=== PATIENT | female | born 1995 | race Caucasian/White ===

== ENCOUNTER → 2020-08-07 10:38 | Outpatient (CLI) | payer BC, SELFPAY ==
--- NOTE | ~2020-08-07 | XR_ITS ---
EXAMINATION: XR lumbar spine 2-3V EXAM DATE: 08/07/2020 11:03 INDICATION: Posterior back pain for one week. TECHNIQUE: Lumber spine frontal, lateral, lateral L5-S1 projections for interpretation. There is no prior study for comparison. FINDINGS: The vertebral bodies are aligned in the AP dimension. Vertebral body and disc heights are w ell-maintained. Facet joints are unremarkable. No spondylolysis. Sacrum, sacroiliac joints, sacral ar raina lines are intact. Paraspinal soft tissue is unremarkable. IMPRESSION: Unremarkable XR lumbar spine 2-3V exam. Reviewed, dictated and finalized at location A.
== END ==
PROVIDERS: PCP Family Medicine; Visit Provider Physician Assistant
DX: M54.32 Sciatica, left side (principal); M54.9 Dorsalgia, unspecified
CPT/HCPCS: 72100

== ENCOUNTER 2020-09-28 14:59 | Emergency (ER) | payer BC, SELFPAY ==
--- NOTE | ~2020-09-28 | CT_ITS ---
EXAMINATION: CT brain wo con DATE: 09/28/2020 17:04 INDICATION: Lower extremity weakness. TECHNIQUE: Computed tomography (CT) of the head was performed without intravenous contrast. The mA wa s adjusted according to patient size. Iterative reconstruction technique was employed. The dose-lengt h product was 605.33 mGy-cm. COMPARISON: None FINDINGS: There is no intracranial hemorrhage, acute infarction, or abnormal intracranial mass lesion . The ventricles are normal in size. The paranasal sinuses are clear. The mastoid air cells are es l. IMPRESSION: 1. Normal brain. Reviewed, dictated and finalized at location A. OLOGY COLLECTOR IMPRESSION: 1. Normal brain.
--- NOTE | ~2020-09-28 | CT_ITS ---
EXAMINATION: CT lumbar spine wo con DATE: 09/28/2020 17:05 INDICATION: Right leg weakness. Chronic low back pain. TECHNIQUE: Computed tomography (CT) of the lumbar spine was performed without intravenous contrast. A utomated exposure control and iterative reconstruction technique were employed. The dose-length produ ct was 1001.18 mGy-cm. COMPARISON: Lumbar spine radiographs 08/07/2020 FINDINGS: There are surgical clips from cholecystectomy. There is 6 degrees levocurvature of lumbar s pine. There are Schmorl's nodes from T11-T12 through L1-L2. Intervertebral disc heights are normal. T he following disc levels are specifically discussed: L1-L2: The disc is bulging. There is mild bilateral facet joint osteoarthritis. There is no neural fo raminal stenosis. There is mild central canal stenosis. L2-L3: The disc does not extend beyond the endplate margin. There is mild bilateral facet joint osteo arthritis. There is no neural foraminal stenosis. There is no central canal stenosis. L3-L4: The disc is bulging. There is moderate right and mild left facet joint osteoarthritis. There i s mild bilateral neural foraminal stenosis. There is mild central canal stenosis. L4-L5: The disc is bulging. There is mild bilateral facet joint osteoarthritis. There is mild bilater al neural foraminal stenosis. There is mild central canal stenosis. L5-S1: The disc is bulging. There is moderate bilateral facet joint osteoarthritis. There is mild rig ht and moderate left neural foraminal stenosis. There is mild central canal stenosis. IMPRESSION: 1. Mild lumbar spondylosis. Reviewed, dictated and finalized at location A. ENGINEER IMPRESSION: 1. Mild lumbar spondylosis.
[2020-09-28 15:04] VITALS: BP 144/89; PULSE 105; RESP 18; TEMP 36.8; O2SAT 98
--- NOTE | 2020-09-28 15:23 | PC.NURSE ---
during assessment, patient unable to lift either leg more than a couple of inches but when told she can sit up on the side of the bed she moved into sitting position with no problem.
--- NOTE | 2020-09-28 16:08 | ED.LOWEXIN ---
HPI - Extremity Injury (Lower) General Chief Complaint: Extremity Injury, Lower Stated Complaint: muscle weakness Time Seen by Provider: 09/28/20 15:28 Source: patient Mode of arrival: wheelchair Limitations: no limitations History of Present Illness HPI Narrative: This is a 25 year old female that presents to the ER for lower extremity weakness x 2 months. Reports increasing weakness in her lower extremities. Reports it is making it difficult for her to ambulate. Reports she is currently seeing a neurologist at [facility] for weakness in her upper extremities. Had a nerve conduction study done for possible carpal tunnel and noted to start having lower extremity weakness after that. Denies fever, low back pain, saddle anesthesia or bowel/bladder incontinence. Related Data Home Medications Medication Instructions Recorded Confirmed diazepam 2 mg tablet 2 mg PO TID PRN 11/13/19 08/05/20 lamotrigine 200 mg tablet 400 mg PO DAILY tablet 11/13/19 08/05/20 lansoprazole 15 mg capsule,delayed 15 mg PO DAILY 11/13/19 08/05/20 release methylphenidate HCl 36 mg 72 mg PO QAM tablet 11/13/19 08/05/20 tablet,extended release 24 hr trazodone 50 mg tablet 50 mg PO DAILY tablet 11/13/19 08/05/20 venlafaxine 75 mg capsule,extended 75 mg PO DAILY 11/13/19 08/05/20 release 24 hr ferrous sulfate 325 mg (65 mg 150 mg PO .every other day tablet 08/05/20 08/05/20 iron) tablet medroxyprogesterone mg IM 09/28/20 Allergies Allergy/AdvReac Type Severity Reaction Status Date / Time cinnamon Allergy Unknown Unknown Verified 08/05/20 16:12 metronidazole Allergy Unknown unknown Verified 08/05/20 16:12 Review of Systems Review of Systems: Narrative: CONSTITUTIONAL: Denies fever SKIN: Denies rash MUSCULOSKELETAL: Reports back pain, joint pain, and myalgia. NEUROLOGIC: Reports weakness. Denies numbness All systems reviewed & are unremarkable except as noted in HPI and below PMFSH Past Medical History Medical History (Updated 09/28/20 @ 18:30 by Arlin Burnham PA-C) Anxiety disorder, unspecified Bipolar disorder, unspecified Surgical History Surgical History Hx of cholecystectomy (~07/2019) Family History Family History Mother Family history of thyroid disease Grandparent Family history of lung cancer Other Family history of malignant neoplasm of breast Social History Social History Smoking status: Current every day smoker Alcohol intake: current Gender identity (if verbalized by the patient): Female Exam Narrative: Exam Narrative: GENERAL: Well-appearing, well-nourished, and in no acute distress. HEAD: Normocephalic, atraumatic. EYES: PERRLA and EOMI. ENT: Nares clear, no rhinorrhea or epistaxis. Mucous membranes moist. Oropharynx without tonsillar hypertrophy exudate or other lesions. Bilateral TMs pearly marcano non-bulging NECK: Supple. No adenopathy or masses. CHEST: Clear to auscultation. No respiratory distress. No wheezes rales or rhonchi HEART: Regular rate and rhythm. No murmur heard. Normal peripheral pulses. BACK: No midline spinal tenderness EXTREMITIES: Normal range of motion. No edema or erythema. Strength equal in bilateral lower extremities (3/5). Normal DP pulses. Normal sensation SKIN: Warm, dry, no rash. NEURO: No focal deficits. Alert and oriented x3. Cranial nerves II through XII grossly intact PSYCH: Normal mood and affect Course Consultations Consultation #1: Spoke with Dr. Guido about patient and workup. Patient may follow-up in clinic. If there are any concerns she could be transferred for further evaluation in the ED tonight Date: 09/28/20 Time: 18:28 Vital Signs Vital signs: Vital Signs Temperature 98.3 F 09/28/20 15:04 Pulse Rate 105 H 09/28/20 15:04 Respiratory Rate 18 09/28/20 15:04 Blood Pressur
[2020-09-28 16:25] LABS: Basophils Percent Auto 0.4 % (0.2-1.2); Eosinophils Absolute Auto 0.1 K/mm3 (0-0.3); Eosinophils Percent Auto 1.4 % (0-4.4); Hematocrit 43.1 % (37.0-47.0); Hemoglobin 14.2 g/dL (12.0-15.0); Immature Granulocyte Absolute 0.02 K/mm3 (0.00-0.031); Immature Granulocyte Percent A 0.2 % (0-0.5); Lymphocytes Absolute Auto 2.66 K/mm3 (0.9-3.2); Lymphocytes Percent Auto 28.6 % (18.3-44.2); Mean Corpuscular HGB Conc 32.9 g/dl (32-36); Mean Corpuscular Hemoglobin 29.8 pg (26-34); Mean Corpuscular Volume 90.5 fl (80-100); Mean Platelet Volume 9.3 fl (7.4-10.4); Monocytes Absolute Auto 0.6 K/mm3 (0.1-0.6); Monocytes Percent Auto 6.8 % (2.6-8.5); Neutrophils Absolute Auto 5.8 K/mm3 (1.3-6.7); Neutrophils Percent Auto 62.6 % (45.5-73.1); Platelet Count Result 375 k/mm3 (150-375); Red Blood Count 4.76 M/mm3 (4.2-5.4); Red Cell Distribution Width 13.7 % (11.5-14.5); White Blood Count 9.3 K/mm3 (4.5-10.0)
[2020-09-28 16:45] LABS: Anion Gap 8 mmol/L (8-16); Blood Urea Nitrogen 14 mg/dL (7-17); CRP 0.7 mg/dL (<1.0); Calcium 9.2 mg/dL (8.4-10.2); Carbon Dioxide 25 mmol/L (22-30); Chloride 107 mmol/L (98-107); Estimated CRCL calculation 116 ml/min; Estimated Glomerular Filt Rate > 60; Glucose 114 mg/dL (65-105); Sodium 140 mmol/L (137-145)
[2020-09-28 16:51] LABS: Erythrocyte Sedimentation Rate 10 mm/hr (0-20)
[2020-09-28 17:40] LABS: Potassium 3.8 mmol/L (3.4-5.0)
[2020-09-28 18:06] VITALS: BP 114/67; PULSE 66; RESP 18; O2SAT 97
--- NOTE | 2020-09-28 18:06 | PC.NURSE ---
Pt ambulated to the bathroom with no assistance. Pt using rails on the bradshaw to balance
== END 2020-09-28 19:00 | disposition home or self-care (01) ==
PROVIDERS: Physician Assistant; Emergency Provider Emergency Medicine; PCP Family Medicine
DX: R53.1 Weakness (principal); F41.9 Anxiety disorder, unspecified; F31.9 Bipolar disorder, unspecified; F17.200 Nicotine dependence, unspecified, uncomplicated; M47.816 Spondylosis without myelopathy or radiculopathy, lumbar region
CPT/HCPCS: 36415; 70450; 72131; 80048; 81025; 85025; 85652; 86140; 99284

== ENCOUNTER → 2022-07-25 10:38 | Outpatient (CLI) | payer BC, SELFPAY ==
--- NOTE | ~2022-07-25 | US_ITS ---
EXAMINATION: US renal BI DATE: 07/25/2022 11:03 INDICATION: Other specified disorders of kidney and ureter TECHNIQUE: Multiple ultrasound grayscale images of the kidneys were obtained. COMPARISON: None. FINDINGS: The right kidney measures 11.3 x 4.6 x 5.5 cm. The left kidney measures 10.3 x 4.5 x 5.3 cm. The kidn eys demonstrate normal echogenicity. There is mild bilateral hydronephrosis. No stones identified. T he bladder is normal. IMPRESSION: 1. Mild bilateral hydronephrosis which is of indeterminate etiology although the bilaterality would suggest obstruction or neurogenic bladder as potential etiologies. Reviewed, dictated and finalized at location A. IMPRESSION: 1. Mild bilateral hydronephrosis which is of indeterminate etiology although t he bilaterality would suggest obstruction or neurogenic bladder as potential et iologies.
== END ==
PROVIDERS: PCP Family Medicine; Visit Provider Family Medicine
DX: N28.89 Other specified disorders of kidney and ureter (principal); N13.30 Unspecified hydronephrosis
CPT/HCPCS: 76775

== ENCOUNTER 2022-08-20 18:56 | Emergency (ER) | payer BC, SELFPAY ==
[2022-08-20 18:58] VITALS: BP 151/81; PULSE 92; RESP 11; TEMP 36.7; O2SAT 99
[2022-08-20 19:24] LABS: Glucose Point of Care 96 mg/dl (65-105)
--- NOTE | 2022-08-20 19:33 | PC.NURSE ---
Pt alert and awake, able to move and speak with EDP Castro. Pt tearful. Family and pt updated on POC.
--- NOTE | 2022-08-20 19:38 | ED.AMS ---
HPI - Altered Mental Status General Chief Complaint: Altered Mental Status Stated Complaint: can't speak or move Time Seen by Provider: 08/20/22 19:12 History of Present Illness HPI narrative: [facility] to an episode where she felt as if she could not speak or move. Patient. She states that she has had similar episodes in the past that she attributes possibly from her anxiety or stress levels, though she states that over the last 2 weeks she feels she is having more of these episodes she describes these episodes as usually a sensation of feeling as if she is not able to think well. She does have a psychiatrist for her bipolar disorder and has been taking all of her medications. Related Data Home Medications Medication Instructions Recorded Confirmed medroxyprogesterone 150 mg/mL mg IM 09/28/20 08/05/22 intramuscular syringe dextroamphetamine-amphetamine ER 30 mg PO DAILY 12/02/20 08/05/22 30 mg 24hr capsule,extend release (Adderall XR) lansoprazole 15 mg capsule,delayed 30 mg PO DAILY 11/03/21 08/05/22 release (Prevacid) diclofenac sodium 50 mg 50 mg PO DAILY 05/16/22 08/05/22 tablet,delayed release fluoxetine 40 mg capsule 80 mg PO DAILY 05/16/22 08/05/22 lamotrigine 200 mg tablet 200 mg PO DAILY 05/16/22 08/05/22 (Lamictal) trazodone 50 mg tablet 100 mg PO QHS 05/16/22 08/05/22 Allergies Allergy/AdvReac Type Severity Reaction Status Date / Time cinnamon Allergy Unknown throat Verified 08/20/22 19:07 swelling metronidazole Allergy Unknown Confusion Verified 08/20/22 19:07 topiramate [From Topamax] AdvReac Mild Confusion Verified 08/20/22 19:07 aimovig AdvReac bone pain Uncoded 08/20/22 19:07 sumitriptan AdvReac suicidal Uncoded 08/20/22 19:07 ideation Review of Systems Review of Systems: CONST: No fever. HEENT: No sore throat C/V: No chest pain RESP: No cough GI: No abdominal pain : Increased frequency M/S: No joint pain. SKIN: No rash. NEURO: Feels as if she cannot tell her body to move PSYCH: Anxiety PMFSH Past Medical History Medical History Anxiety disorder, unspecified Bipolar disorder, unspecified Depression Erosive esophagitis GERD (gastroesophageal reflux disease) RLS (restless legs syndrome) Stomach ulcer Surgical History Surgical History Hx of cholecystectomy (~07/2019) S/P laparotomy Family History Family History Mother Family history of thyroid disease Graves disease Grandparent Family history of lung cancer Father Hypertension Other Family history of malignant neoplasm of breast Social History Social History Smoking status: Current every day smoker Alcohol intake: current Gender identity (if verbalized by the patient): Female Exam Narrative: EXAMINATION OF ORGAN SYSTEMS/BODY AREAS: Constitutional: Vital signs per nursing GENERAL:[No acute distress, non-toxic appearing.] HEAD: Normal with no signs of head trauma. EYES: EOMI, conjunctiva normal ENT: Hearing grossly intact. Speaking with normal speech. Able to turn her neck. LUNGS: Nonlabored breathing. HEART: [Regular rate and rhythm] ABD: [Soft], [nontender to palpation] EXT: Not currently moving her extremities SKIN: [No rashes or lesions.] NEURO: [Alert and oriented x 3.] PSYCH: Normal affect; upset with the map plotter who transported her Course Vital Signs Vital signs: Vital Signs Temperature 98.0 F 08/20/22 18:58 Pulse Rate 92 08/20/22 18:58 Respiratory Rate 11 L 08/20/22 18:58 Blood Pressure 151/81 H 08/20/22 18:58 Pulse Oximetry 99 08/20/22 18:58 Oxygen Delivery Room Air 08/20/22 18:58 Temperature 98.0 F 08/20/22 18:58 Pulse Rate 96 08/20/22 19:53 Respiratory Rate 13 08/20/22 19:53 Blood Pressure 135/84
[2022-08-20 19:53] VITALS: BP 135/84; PULSE 96; RESP 13; O2SAT 100
[2022-08-20 20:00] LABS: Basophils Absolute Auto 0.1 K/mm3 (0.0-0.1); Basophils Percent Auto 0.7 % (0.2-1.2); Eosinophils Absolute Auto 0.2 K/mm3 (0-0.3); Eosinophils Percent Auto 2.1 % (0-4.4); Hemoglobin 14.5 g/dL (12.0-15.0); Immature Granulocyte Absolute 0.01 K/mm3 (0.00-0.031); Immature Granulocyte Percent A 0.1 % (0-0.5); Lymphocytes Absolute Auto 4.32 K/mm3 (0.9-3.2); Lymphocytes Percent Auto 43.4 % (18.3-44.2); Mean Corpuscular Volume 97.1 fl (80-100); Mean Platelet Volume 8.9 fl (7.4-10.4); Monocytes Absolute Auto 0.7 K/mm3 (0.1-0.6); Monocytes Percent Auto 7.3 % (2.6-8.5); Neutrophils Absolute Auto 4.6 K/mm3 (1.3-6.7); Neutrophils Percent Auto 46.4 % (45.5-73.1); Platelet Count Result 397 k/mm3 (150-375); Red Blood Count 4.53 M/mm3 (4.2-5.4); Red Cell Distribution Width 12.5 % (11.5-14.5)
[2022-08-20 20:11] LABS: Alanine Aminotransferase 42 U/L (6-35); Albumin Level 4.3 g/dL (3.5-5.1); Alkaline Phosphatase 84 U/L (38-126); Anion Gap 11 mmol/L (8-16); Aspartate Amino Transferase 31 U/L (14-36); Bilirubin,Total 0.3 mg/dL (0.2-1.3); Blood Urea Nitrogen 10 mg/dL (7-17); Calcium 9.1 mg/dL (8.4-10.2); Carbon Dioxide 26 mmol/L (22-30); Chloride 101 mmol/L (98-107); Estimated CRCL calculation 79 ml/min; Estimated Glomerular Filt Rate > 60; Glucose 91 mg/dL (65-110); Sodium 138 mmol/L (137-145)
[2022-08-20 20:14] LABS: Acetaminophen < 10 ug/mL (10-30); Ethanol < 10 mg/dL (<10)
[2022-08-20 20:16] LABS: Salicylate < 1.0 mg/dL (2-20)
--- NOTE | 2022-08-20 20:23 | PC.NURSE ---
patient ambulated to bathroom with steady gate
[2022-08-20 20:35] LABS: Appearance Urine Clear (Clear); Bilirubin Urine Negative (Negative); Blood Urine Negative (Negative); Color Urine Yellow (Yellow); Glucose Urine UA Negative (Negative); Ketones Urine Negative (Negative); Leukocyte Esterase Ur Negative LEU/UL (Negative); Nitrate Urine Negative (Negative); Protein Urine Negative (Negative); Specific Grav Ur 1.015 (1.001-1.035); Urobilinogen Urine 0.2 mg/dL (<2.0); pH Urine 6.5 (5.0-9.0)
[2022-08-20 20:38] LABS: Add Urine Microscopic? NO
[2022-08-20 20:45] LABS: Amphetamine Screen Urine Positive (Negative); Barbiturate Screen Urine Negative (Negative); Benzodiazepines Screen Urine Negative (Negative); Cannabinoid Screen Urine Negative (Negative); Cocaine Screen Urine Negative (Negative); Methadone Screen Urine Negative (Negative); Opiate Screen Urine Negative (Negative); Phencyclidine Screen Urine Negative (Negative)
[2022-08-20 21:08] VITALS: BP 126/71; PULSE 83; RESP 17; O2SAT 98
== END 2022-08-20 21:16 | disposition home or self-care (01) ==
PROVIDERS: Emergency Provider Emergency Medicine; PCP Family Medicine
DX: F43.9 Reaction to severe stress, unspecified (principal); F41.9 Anxiety disorder, unspecified; F31.9 Bipolar disorder, unspecified; K22.10 Ulcer of esophagus without bleeding; K21.9 Gastro-esophageal reflux disease without esophagitis; G25.81 Restless legs syndrome; F17.200 Nicotine dependence, unspecified, uncomplicated
CPT/HCPCS: 36415; 80053; 80307; 81003; 81025; 82948; 84443; 85025; 99283

== ENCOUNTER 2022-09-06 12:48 | Outpatient (CLI) | payer BC, SELFPAY ==
--- NOTE | ~2022-09-06 | NM_ITS ---
EXAMINATION: [facility] jimenez renal scan DATE: 09/06/2022 14:24 INDICATION: Bilateral hydronephrosis TECHNIQUE: 7.7 mCi Tc-99m MAG3 was administered IV. 40 mg furosemide was administered IV immediately afterward. A posterior abdominal radionuclide angiogram was obtained. A subsequent time course of st atic images of the kidneys, ureters, and bladder was obtained. COMPARISON: None FINDINGS: The posterior abdominal radionuclide angiogram and sequential static images show normal size, positio n, and morphology of the kidneys. Peak renal parenchymal uptake was 1.9 min in left kidney and 1.7 mi n in right kidney (normal peak 3-5 minutes). The relative early renal uptake was 42.3% on the left a nd 57.7% on the right (<40% is abnormal). No abnormalities of the ureters or bladder are seen. T1/2 for clearance of activity from the left kidney and proximal collecting system was 3.6 minutes. T1/2 for clearance of activity from the right kidney and proximal collecting system was 3.7 minutes. Notes on interpretation: T1/2 <10 minutes is normal, 10-15 minutes is low grade obstruction of questi onable clinical significance, 15-20 minutes is partial obstruction that is likely clinically signific ant, >20 minutes is high grade obstruction. Note that false positives may be seen with supine positio dre, dehydration, severely dilated nonobstructed kidney, atonic collecting system, poor renal functi on, and chronic furosemide use. IMPRESSION: 1. Symmetric kidney function. 2. No delay in contrast clearance from either kidney to suggest fixed obstruction. Reviewed, dictated and finalized at location B. IMPRESSION: 1. Symmetric kidney function. 2. No delay in contrast clearance from either kidney to suggest fixed obstruct ion.
== END 2022-09-06 12:49 | disposition home or self-care (01) ==
PROVIDERS: PCP Family Medicine; Visit Provider Urology
DX: N13.30 Unspecified hydronephrosis (principal)
CPT/HCPCS: 78708; A9562; J1940

== ENCOUNTER 2022-10-03 15:14 | Outpatient (CLI) | payer BC, SELFPAY | END 2022-10-03 15:15 | disposition home or self-care (01) | LOC: ANHGOSHLAB 15:15 | PROVIDERS: PCP Family Medicine; Visit Provider Family Medicine | DX: M35.3 Polymyalgia rheumatica (principal); G25.81 Restless legs syndrome; R53.83 Other fatigue | CPT/HCPCS: 36415; 84443 ==

== ENCOUNTER 2022-10-04 07:15 | Outpatient (CLI) | payer BC, SELFPAY ==
--- NOTE | ~2022-10-04 | XR_ITS ---
EXAMINATION: XR UGIAC w barium swallow DATE: 10/04/2022 08:20 INDICATION: Gastroesophageal reflux disease with esophagitis. TECHNIQUE: The patient drank thick barium, gas-producing crystals, and thin barium. A total of 1331 f luoroscopic images of the esophagus, stomach, and proximal small bowel were obtained. Fluoroscopy exp osure time was 2.4 minutes. COMPARISON: None. FINDINGS: The esophagus is normal without mass or stricture. Esophageal motility is normal. Small to moderate-sized sliding-type hiatal hernia with gastroesophageal junction approximately 5 cm above lev el of the diaphragm. There was a small amount of spontaneous gastroesophageal reflux of a small amoun t of contrast and gas immediately following the double contrast portion of the examination. No subseq uent gastroesophageal reflux was able to be elicited with provocative maneuvers. The stomach and prox imal small bowel are otherwise normal. Cholecystectomy clips in right upper quadrant. IMPRESSION: 1. Small to moderate-sized sliding-type hiatal hernia. 2. Single episode of a small amount of gastroesophageal reflux when the stomach was distended with ga s. Reviewed, dictated and finalized at location A. PACKER OPERATOR IMPRESSION: 1. Small to moderate-sized sliding-type hiatal hernia. 2. Single episode of a small amount of gastroesophageal reflux when the stomach was distended with gas.
== END 2022-10-04 07:16 | disposition home or self-care (01) ==
PROVIDERS: PCP Family Medicine; Visit Provider Surgery
DX: K44.9 Diaphragmatic hernia without obstruction or gangrene (principal); K21.9 Gastro-esophageal reflux disease without esophagitis
CPT/HCPCS: 74246

== ENCOUNTER 2022-12-30 07:43 | Outpatient (CLI) | payer BC, SELFPAY ==
--- NOTE | ~2022-12-30 | CT_ITS ---
EXAMINATION: CT abdomen pelvis w con DATE: 12/30/2022 08:58 INDICATION: Abdominal pain with nausea, vomiting, constipation and weight loss. TECHNIQUE: Computed tomography (CT) of the abdomen and pelvis was performed with 100 mL Omnipaque-350 intravenous contrast. Automated exposure control and iterative reconstruction technique were employe d. The dose-length product was 467.39 mGy-cm. COMPARISON: 08/06/2019 FINDINGS: Lung bases are clear. Visualized inferior heart is normal. No pericardial or pleural effusion. Small sliding-type hiatal hernia. Cholecystectomy clips the gallbladder fossa. Liver, spleen, pancreas, bere ateral adrenal glands and kidneys are normal. Bladder, anteverted uterus and bilateral adnexa are unr emarkable. When comparing the decompressed portion of the ascending colon and hepatic flexure with th e descending colon there appears to be some mild wall thickening at the former suspicious for a mild colitis. No bowel obstruction. Normal appendix. No free intraperitoneal gas or fluid. No pathological ly enlarged abdominal or pelvic lymphadenopathy. Minimal to mild scattered degenerative skeletal perez ges in the spine and pelvis. IMPRESSION: 1. Suggestion of mild wall thickening suspicious for a mild colitis at the proximal colon. Reviewed, dictated and finalized at location A. IC POLICY MEDIATOR IMPRESSION: 1. Suggestion of mild wall thickening suspicious for a mild colitis at the prox imal colon.
== END 2022-12-30 07:44 | disposition home or self-care (01) ==
PROVIDERS: PCP Family Medicine; Visit Provider Surgery
DX: Z01.812 Encounter for preprocedural laboratory examination (principal); K44.9 Diaphragmatic hernia without obstruction or gangrene; R10.84 Generalized abdominal pain; R93.5 Abnormal findings on diagnostic imaging of other abdominal regions, including retroperitoneum
CPT/HCPCS: 36415; 74177; 86850; 86900; 86901; Q9967

== ENCOUNTER 2023-03-02 01:33 | Day surgery (SDC) | payer BC, SELFPAY ==
[2023-02-17 12:01] VITALS: BMI 30.3
[2023-03-02 06:53] VITALS: BP 129/83; PULSE 97; RESP 16; TEMP 36.3; O2SAT 100
[2023-03-02] MEDS: LACTATED RINGERS 1,000 ML 150 ML IV CONT (06:55)
--- NOTE | 2023-03-02 07:24 | WPDANESEPPF ---
Anes - Initial Pre Proc Eval Procedure: Operation Date: 03/02/23 08:00 Proposed Procedures p Esophagogastroduodenoscopy - Dewey Dodson DO Date/Time: 03/02/23 07:24 Surgeon: Dewey Dodson DO Pre Op Diagnosis: hiatal hernia Patient Data Age: 27 Gender: F Height: 1.61 m Weight: 77.7 kg Last Vital Signs Temp 97.4 F L 03/02/23 06:53 Pulse 97 03/02/23 06:53 Resp 16 03/02/23 06:53 BP 129/83 03/02/23 06:53 Pulse Ox 100 03/02/23 06:53 O2 Del Method Room Air 03/02/23 06:53 Allergies Allergy/AdvReac Type Severity Reaction Status Date / Time cinnamon Allergy Severe throat Verified 03/02/23 06:52 swelling erenumab-aooe AdvReac Intermediate bone pain Verified 03/02/23 06:52 [From Aimovig Autoinjector] lumateperone [From Caplyta] AdvReac Intermediate Confusion Verified 03/02/23 06:52 metronidazole AdvReac Intermediate Confusion Verified 03/02/23 06:52 sumatriptan AdvReac Intermediate suicidal Verified 03/02/23 06:52 ideation topiramate [From Topamax] AdvReac Mild Confusion Verified 03/02/23 06:52 Home Medications Medication Instructions Recorded Confirmed Type medroxyprogesterone 150 mg/mL 150 mg IM [id number] 09/28/20 03/02/23 History intramuscular syringe lansoprazole 15 mg capsule,delayed 30 mg PO HS 11/03/21 03/02/23 History release (Prevacid) lamotrigine 200 mg tablet 200 mg PO DAILY 05/16/22 03/02/23 History (Lamictal) ondansetron 4 mg disintegrating 4 mg PO Q6H PRN nausea and 01/17/23 03/02/23 Rx tablet vomiting #10 tabs venlafaxine 75 mg capsule,extended 75 mg PO DAILY 01/24/23 03/02/23 History release 24 hr (Effexor XR) pramipexole 1.5 mg tablet 1.5 mg PO QHS #90 tabs 02/02/23 03/02/23 Rx methylphenidate HCl 54 mg 54 mg PO QAM #30 tabs 02/08/23 03/02/23 Rx tablet,extended release 24 hr (Concerta) diclofenac sodium 75 mg 75 mg PO BID 02/17/23 03/02/23 History tablet,delayed release linaclotide 145 mcg capsule 145 mcg PO DAILY 02/17/23 03/02/23 History (Linzess) trazodone 150 mg tablet 150 mg PO HS 02/17/23 03/02/23 History Patient hx anesthesia problems: none Family hx anesthesia problems: none Results Review: All pre-operative results and documents have been reviewed as part of the pre-operative evaluation. [facility] Past Medical History Medical History Anxiety disorder, unspecified Bipolar disorder, unspecified Depression Erosive esophagitis GERD (gastroesophageal reflux disease) RLS (restless legs syndrome) Stomach ulcer Surgical History Surgical History Hx of cholecystectomy (~07/2019) S/P laparotomy Family History Family History Mother Family history of thyroid disease Graves disease Grandparent Family history of lung cancer Father Hypertension Other Family history of malignant neoplasm of breast Social History Social History Smoking packs per day: 0.75 Smoking cigarettes per day: 15.0 Years smoked: 12 Smoking pack-years: 9.00 Smoking status: Current every day smoker Tobacco type: cigarettes Alcohol intake: current Alcohol use details: Socially Substance use: never Substance use type: does not use Living arrangements: with family Gender identity (if verbalized by the patient): Female Spiritual care concerns: No Anes - Eval Final PreProcedure Day of Procedure 03/02/23 07:24 Patient weight: normal Heart: regular rate and rhythm Lungs: clear to auscultation Airway: Mallampati scale class II Neurological: alert and oriented Last oral intake: >/= 8 hours ASA classification: II Emergent: no Anesthetic plan: proceed Anesthesia type and monitoring: general GIVS and standard monitoring Results Review: All pre-operative results and documents have been
--- NOTE | 2023-03-02 08:06 | WPDHPUPDATE1 ---
History and Physical Update Update Date/Time: 03/02/23 08:06 History and Physical has been reviewed, including an updated exam of the patient. There are NO changes in the patient's condition. Risks, benefits, and alternatives have been discussed and questions answered. Patient agrees to proceed with procedure.
[2023-03-02 08:30] VITALS: BP 97/59; PULSE 86; RESP 24; O2SAT 98
[2023-03-02 08:40] VITALS: BP 100/65; PULSE 76; RESP 21; O2SAT 97
[2023-03-02 08:50] VITALS: BP 114/77; PULSE 94; RESP 25; O2SAT 100
--- NOTE | 2023-03-16 16:14 | PM.IMHP ---
H&P: HPI History of Present Illness Date/Time: 03/16/23 16:14 Chief Complaint: GERD Narrative: 27 yo woman presents for EGD. She has been experiencing upper abdominal pain and acid reflux. She has tried multiple PPI's with little benefit. She had an EGD over 2 years ago and erosive esophagitis was seen. She now presents for follow up EGD before deciding on antireflux surgery. Review of Systems Review of Systems: All systems reviewed & are unremarkable except as noted in HPI and below Constitutional: Constitutional: Denies chills, Denies fever(s) and Denies headache(s) Eyes: Eyes: Denies change in vision ENT: Denies dizziness, Denies headache(s), Denies neck mass and Denies throat swelling Cardiovascular: Cardiovascular: Denies chest pain, Denies lightheadedness and Denies dyspnea Respiratory: Respiratory: Denies cough, Denies dyspnea and Denies wheezing Gastrointestinal: Gastrointestinal: Reports abdominal pain, Reports constipation, Reports dyspepsia, Reports heartburn, Reports nausea and Reports vomiting Genitourinary: Genitourinary: Denies hematuria and Denies dysuria Musculoskeletal: Musculoskeletal: Reports as per HPI Integumentary/Breasts: Skin/Breast: Reports as per HPI Neurologic: Denies dizziness and Denies headache(s) Allergic/Immunologic: Allergic/Immunologic: Denies throat swelling and Denies wheezing PMFSH Past Medical History Medical History Anxiety disorder, unspecified Bipolar disorder, unspecified Depression Erosive esophagitis GERD (gastroesophageal reflux disease) RLS (restless legs syndrome) Stomach ulcer Surgical History Surgical History Hx of cholecystectomy (~07/2019) S/P laparotomy Family History Family History Mother Family history of thyroid disease Graves disease Grandparent Family history of lung cancer Father Hypertension Other Family history of malignant neoplasm of breast Social History Social History Smoking packs per day: 0.75 Smoking cigarettes per day: 15.0 Years smoked: 12 Smoking pack-years: 9.00 Smoking status: Current every day smoker Tobacco type: cigarettes Alcohol intake: current Alcohol use details: Socially Substance use: never Substance use type: does not use Living arrangements: with family Gender identity (if verbalized by the patient): Female Spiritual care concerns: No Meds Home Medications and Allergies Home Medications Medication Instructions Recorded Confirmed Type medroxyprogesterone 150 mg/mL 150 mg IM [id number] 09/28/20 03/02/23 History intramuscular syringe lansoprazole 15 mg capsule,delayed 30 mg PO HS 11/03/21 03/02/23 History release (Prevacid) lamotrigine 200 mg tablet 200 mg PO DAILY 05/16/22 03/02/23 History (Lamictal) venlafaxine 75 mg capsule,extended 75 mg PO DAILY 01/24/23 03/02/23 History release 24 hr (Effexor XR) pramipexole 1.5 mg tablet 1.5 mg PO QHS #90 tabs 02/02/23 03/02/23 Rx diclofenac sodium 75 mg 75 mg PO BID 02/17/23 03/02/23 History tablet,delayed release linaclotide 145 mcg capsule 145 mcg PO DAILY 02/17/23 03/02/23 History (Linzess) trazodone 150 mg tablet 150 mg PO HS 02/17/23 03/02/23 History ondansetron 4 mg disintegrating 4 mg PO Q6H PRN nausea and 03/09/23 Rx tablet vomiting #10 tabs methylphenidate HCl 54 mg 54 mg PO QAM #30 tabs 03/10/23 Rx tablet,extended release 24 hr (Concerta) Allergies Allergy/AdvReac Type Severity Reaction Status Date / Time cinnamon Allergy Severe throat Verified 03/02/23 06:52 swelling erenumab-aooe AdvReac Intermediate bone pain Verified 03/02/23 06:52 [From Aimovig Autoinjector] lumateperone [From Caplyta] AdvReac Intermediate Confusion Verified 03/02/23 06:52
== END 2023-03-02 09:01 | disposition home or self-care (01) ==
PROVIDERS: PCP Family Medicine; Visit Provider Surgery
PROC: 0DJ08ZZ Inspection of Upper Intestinal Tract, Via Natural or Artificial Opening Endoscopic (ICD-10-PCS; CPT 43235; principal; 2023-03-02 08:00)
DX: K21.00 Gastro-esophageal reflux disease with esophagitis, without bleeding (principal); K29.30 Chronic superficial gastritis without bleeding; K44.9 Diaphragmatic hernia without obstruction or gangrene; G25.81 Restless legs syndrome; F41.9 Anxiety disorder, unspecified; F31.9 Bipolar disorder, unspecified; F17.210 Nicotine dependence, cigarettes, uncomplicated
CPT/HCPCS: 43239; 87081; 88305; J2001; J2704; J7120

== ENCOUNTER 2023-06-12 08:18 | Outpatient (CLI) | payer BC, SELFPAY ==
--- NOTE | ~2023-06-12 | XR_ITS ---
Supine and upright views of the abdomen Clinical history: Constipation Findings: Bowel gas pattern is nonspecific. Moderate stool burden. No evidence for obstruction or marlyn e air. No abnormal mass lesion or calcification is seen. Cholecystectomy clips present. Osseous struc tures are intact. Impression: Moderate stool burden, which could reflect history of constipation. Reviewed, dictated and finalized at [facility]. Impression: Moderate stool burden, which could reflect history of constipation.
== END 2023-06-12 08:19 | disposition home or self-care (01) ==
PROVIDERS: PCP Family Medicine; Visit Provider Family Medicine
DX: K59.00 Constipation, unspecified (principal); R10.9 Unspecified abdominal pain
CPT/HCPCS: 74018

== ENCOUNTER 2023-09-27 09:30 | Outpatient (CLI) | payer BC, SELFPAY ==
[2023-09-27 09:53] LABS: Hematocrit 47.4 % (37.0-47.0); Hemoglobin 15.5 g/dL (12.0-15.0)
== END 2023-09-27 09:31 | disposition home or self-care (01) ==
LOC: ANHSURGERY 09:34
PROVIDERS: PCP Family Medicine; Visit Provider Obstetrics & Gynecology
DX: Z01.818 Encounter for other preprocedural examination (principal); N94.6 Dysmenorrhea, unspecified
CPT/HCPCS: 36415; 85014; 85018; 86850; 86900; 86901

== ENCOUNTER 2023-09-29 05:27 | Day surgery (SDC) | payer BC, SELFPAY ==
--- NOTE | 2023-09-26 07:45 | PM.IMHP ---
H&P: HPI History of Present Illness Date/Time: 09/26/23 07:45 Chief Complaint: Pelvic pain/dysmenorrhea/dyspareunia/irregular bleeding Narrative: This is a 28-year-old female with pelvic pain and dyspareunia as well as irregular excessive bleeding. She is admitted for laparoscopy with hysteroscopy dilatation curettage. Risks and benefits were reviewed including but not exclusive of , aspiration pneumonia, bleeding, transfusion, perforation injury to bowel, bladder, ureters, or other internal organs with need for open laparotomy. She received the ACOG handout entitled laparoscopy as well as hysteroscopy and dilatation curettage respectively. She had all questions answered. She asked to proceed PMFSH Past Medical History Medical History Anxiety disorder, unspecified Bipolar disorder, unspecified Depression Erosive esophagitis GERD (gastroesophageal reflux disease) RLS (restless legs syndrome) Stomach ulcer Surgical History Surgical History Hx of cholecystectomy (~07/2019) S/P laparotomy Family History Family History Mother Family history of thyroid disease Graves disease Grandparent Family history of lung cancer Father Hypertension Other Family history of malignant neoplasm of breast Social History Social History Smoking packs per day: 0.75 Smoking cigarettes per day: 15.0 Years smoked: 12 Smoking pack-years: 9.00 Smoking status: Current every day smoker Tobacco type: cigarettes Alcohol intake: current Alcohol use details: Socially Substance use: never Substance use type: does not use Living arrangements: with family Gender identity (if verbalized by the patient): Female Spiritual care concerns: No Meds Home Medications and Allergies Home Medications Medication Instructions Recorded Confirmed Type lansoprazole 15 mg capsule,delayed 30 mg PO HS 11/03/21 03/02/23 History release (Prevacid) venlafaxine 75 mg capsule,extended 75 mg PO DAILY 01/24/23 03/02/23 History release 24 hr (Effexor XR) trazodone 150 mg tablet 150 mg PO HS 02/17/23 03/02/23 History methylphenidate HCl 54 mg 54 mg PO QAM #30 tabs 05/15/23 05/15/23 Rx tablet,extended release 24 hr (Concerta) methylphenidate HCl 54 mg 54 mg PO QAM #30 tabs 05/15/23 05/15/23 Rx tablet,extended release 24 hr (Concerta) methylphenidate HCl 54 mg 54 mg PO QAM #30 tabs 05/22/23 Rx tablet,extended release 24 hr (Concerta) lamotrigine 200 mg tablet 200 mg PO DAILY #30 tabs 06/07/23 Rx (Lamictal) linaclotide 290 mcg capsule 290 mcg PO DAILY #30 caps 06/16/23 Rx (Linzess) pramipexole 1.5 mg tablet 1.5 mg PO QHS #90 tabs 07/17/23 Rx ferrous sulfate 325 mg (65 mg 325 mg PO BID #200 tabs 09/06/23 Rx iron) tablet Allergies Allergy/AdvReac Type Severity Reaction Status Date / Time cinnamon Allergy Severe throat Verified 05/15/23 09:28 swelling erenumab-aooe AdvReac Intermediate bone pain Verified 05/15/23 09:28 [From Aimovig Autoinjector] lumateperone [From Caplyta] AdvReac Intermediate Confusion Verified 05/15/23 09:28 metronidazole AdvReac Intermediate Confusion Verified 05/15/23 09:28 sumatriptan AdvReac Intermediate suicidal Verified 05/15/23 09:28 ideation topiramate [From Topamax] AdvReac Mild Confusion Verified 05/15/23 09:28 Exam Const: General: cooperative, healthy appearing and comfortable Nutritional Appearance: overweight Orientation/consciousness: oriented to person, oriented to place and oriented to time HENMT: Head: normal to inspection Resp: Effort & Inspection: normal respiratory effort Cardio: Rate: regular rate Rhythm: regular rhythm Heart sounds: S1 normal heart sound present and S2 normal heart sound
[2023-09-26 09:12] VITALS: BMI 30.3
--- NOTE | 2023-09-26 09:18 | PC.NURSE ---
Report to the Outpatient Waiting Room, entrance under the green pavilion located off [facility], at time 8:30 on date 09/29/23. Planned Procedure Time: 10:30. Time changes happen often and if your time is changed the preop area will call you the afternoon before. - You and your visitor will be asked to self-screen and do not enter if you have any COVID symptoms. - A mask is optional within the hospital at this time. Patients may have clear liquids (water, carbonated beverages, clear teas, apple juice) until 3 hours prior to surgery (7:30) with a maximum of 20 ounces. - No food from midnight until time of surgery Take the following medications with a SIP of water the morning of surgery: REXULTI, LAMOTRIGINE, PRAMIPEXOLE, VENLAFAXINE DO NOT STOP ANY OF YOUR OTHER PRESCRIPTION MEDICATIONS PRIOR TO SURGERY ?EXCEPT THE FOLLOWING Medications to discontinue per physician: VITAMINS Date to take last dose: NO MORE UNTIL AFTER SURGERY Please no make-up, nail upper sorbian, hairspray, perfume, deodorant, or body powder the day of surgery. No jewelry (including any body piercings) or valuables the day of surgery, leave them at home. Please take a shower or bath the night before, or the morning of, surgery with an antibacterial soap. Wear comfortable, loose fitting clothing. - Jewelry must be removed prior to entering the operating room. Rings and piercings that are not removed may be cut off. - The hospital will not accept responsibility for valuables. - Please leave all valuables, including medications, at home the day of surgery. If you are going home after surgery, a licensed dinkey driver must drive you home. - NO public transportation without another adult if you receive anesthesia. - We recommend that an adult stay with you for 24 hours following discharge. - We also recommend that you do not drive, make important decision, drink alcoholic beverages, or take any drugs that were not prescribed by your health care provider for at least 24 hours after your discharge time. Follow any additional instructions given to you from your surgeon. If you or anyone in your household have experienced Covid symptoms in the past week, please notify your surgeon or the nurse liaison at the phone number below for possible testing. Telephone instructions given to PT - RANDALL LOVELL and asked if any additional questions and then verbalized understanding. Patient advised to call surgeon office or pre surgery nurse liaison [phone] if any additional questions.
[2023-09-29] VITALS (7 sets, daily range): BP systolic 117–141; BP diastolic 65–88; PULSE 71–118; RESP 14–22; TEMP 36.7–36.9; O2SAT 98–100; BMI 30.7
--- NOTE | 2023-09-29 06:37 | WPDHPUPDATE1 ---
History and Physical Update Update Date/Time: 09/29/23 06:37 History and Physical has been reviewed, including an updated exam of the patient. There are NO changes in the patient's condition. Risks, benefits, and alternatives have been discussed and questions answered. Patient agrees to proceed with procedure.
[2023-09-29] MEDS: LACTATED RINGERS 1,000 ML 30 ML IV CONT (09:40)
--- NOTE | 2023-09-29 09:46 | WPDANESEPPF ---
Anes - Initial Pre Proc Eval Procedure: Operation Date: 09/29/23 10:30 Proposed Procedures p Diagnostic Laparoscopy, Hysteroscopy with Dilation and Curettage - Theodore Aceves MD Date/Time: 09/29/23 09:46 Surgeon: Theodore Aceves MD Pre Op Diagnosis: Pelvic Pain, Dysmenorrhea, Dyspareunia, Irg Bleed Patient Data Age: 28 Gender: F Height: 1.61 m Weight: 78.95 kg Allergies Allergy/AdvReac Type Severity Reaction Status Date / Time cinnamon Allergy Intermediate throat Verified 09/29/23 09:30 swelling erenumab-aooe AdvReac Intermediate bone pain Verified 09/26/23 09:09 [From Aimovig Autoinjector] lumateperone [From Caplyta] AdvReac Intermediate Confusion Verified 09/29/23 09:30 metronidazole AdvReac Intermediate Confusion Verified 09/26/23 09:09 sumatriptan AdvReac Intermediate suicidal Verified 09/26/23 09:09 ideation topiramate [From Topamax] AdvReac Mild Confusion Verified 09/26/23 09:09 Home Medications Medication Instructions Recorded Confirmed Type lansoprazole 15 mg capsule,delayed 30 mg PO HS 11/03/21 09/26/23 History release (Prevacid) venlafaxine 75 mg capsule,extended 75 mg PO DAILY 01/24/23 09/26/23 History release 24 hr (Effexor XR) trazodone 150 mg tablet 150 mg PO HS 02/17/23 09/26/23 History methylphenidate HCl 54 mg 54 mg PO QAM #30 tabs 05/22/23 09/26/23 Rx tablet,extended release 24 hr (Concerta) lamotrigine 200 mg tablet 200 mg PO DAILY #30 tabs 06/07/23 09/26/23 Rx (Lamictal) pramipexole 1.5 mg tablet 1.5 mg PO QHS #90 tabs 07/17/23 09/26/23 Rx brexpiprazole 1 mg tablet (Rexulti) 1 mg PO DAILY 09/26/23 09/26/23 History cyanocobalamin (vitamin B-12) 1,000 mcg PO DAILY 09/26/23 09/26/23 History 1,000 mcg tablet hydrocodone 5 mg-acetaminophen 325 1 tablet PO Q4H PRN pain #30 tabs 09/29/23 Rx mg tablet Patient hx anesthesia problems: none Family hx anesthesia problems: none Results Review: All pre-operative results and documents have been reviewed as part of the pre-operative evaluation. [facility] Past Medical History Medical History Anxiety disorder, unspecified Bipolar disorder, unspecified Depression Erosive esophagitis GERD (gastroesophageal reflux disease) RLS (restless legs syndrome) Stomach ulcer Surgical History Surgical History Hx of cholecystectomy (~07/2019) S/P laparotomy Family History Family History Mother Family history of thyroid disease Graves disease Grandparent Family history of lung cancer Father Hypertension Other Family history of malignant neoplasm of breast Social History Social History Smoking packs per day: 0.5 Smoking cigarettes per day: 10.0 Years smoked: 12 Smoking pack-years: 6.00 Smoking status: Current every day smoker Tobacco type: cigarettes Alcohol intake: current Drinks per week: 5 Alcohol use details: Socially Substance use: never Substance use type: does not use Living arrangements: with family Gender identity (if verbalized by the patient): Female Spiritual care concerns: No Anes - Eval Final PreProcedure Day of Procedure 09/29/23 09:46 Patient weight: obese Heart: regular rate and rhythm Lungs: clear to auscultation Airway: Mallampati scale class II Neurological: alert and oriented Last oral intake: >/= 8 hours ASA classification: III Emergent: no Anesthetic plan: proceed Anesthesia type and monitoring: general ETT and standard monitoring Results Review: All pre-operative results and documents have been reviewed as part of the pre-operative evaluation. Informed Consent: The patient's anesthetic plan and its attendant risks and benefits were discussed with the patient/family/POA. Questions were solicited
[2023-09-29] MEDS: ACETAMINOPHEN 500 MG TABLET 1000 MG PO (09:48)
[2023-09-29] MEDS: KETOROLAC 15 MG/ML VIAL (*BKC) IV PUSH (09:48)
--- NOTE | 2023-09-29 11:25 | P.OP_ITS ---
Procedure Note - Detailed Date of Procedure 09/29/23 Pre-op Diagnosis Pelvic Pain, Dysmenorrhea, Dyspareunia, Irg Bleed Post-op Diagnosis Other ( pelvic pain /dysmenorrhea/ dyspareunia/irregular bleeding/ uterine fibroid /endometriosis) Procedure Performed laparoscopic destruction of endometriosis /hysteroscopy/ dilatation curettage /endoscopic myomectomy Surgeon Theodore Aceves MD Anesthesia General Indications this is a 28-year-old female with pain bleeding dyspareunia. Findings On laparoscopy normal-appearing ovaries tubes and uterus were present. An area of endometriosis was seen along the left side of the pelvis. The appendix appeared normal. The gallbladder was surgically absent. The liver edge appeared within normal limits. On hysteroscopy there was a uterine fibroid seen. Description of Procedure Patient was prepped draped in the normal sterile fashion placed in dorsal lithotomy position. Under excellent general trach anesthesia weighted speculum placed posterior fornix vagina. Anterior lip of cervix grasped with single- tooth tenaculum. Quan's cannula inserted cervix attached a single-tooth to be used later for uterine manipulation. Bladder was emptied of clear urine the weighted speculum was removed. Gloves were changed. An infraumbilical incision made the Veress needle passed in the abdomen. Abdomen filled with CO2 gas [id number]. The 5mm trocar advanced under direct visualization with the optic scope and no injury seen. Patient placed in Trendelenburg and a suprapubic incision made. The 5mm trocar advanced under direct visualization assuring no injury. Proximally 10cc of serosanguineous fluid was seen in the cul-de-sac this was irrigated removed without difficulty. Ovaries and tubes appeared within normal limits as did the appendix. The gallbladder appeared surgically absent. The liver edge appeared within normal limits. The edge the left uterosacral ligament along the left tube had small areas of endometriosis and powder burn fashion these were cauterized at 35 w per 2nd. Irrigation undertaken to clear and no other abnormalities were seen. The gas removed from the abdomen. The trocars removed and the incisions closed with 4-0 Monocryl and glue. Attention was turned to the hysteroscopic portion. The uterus sounded to7.5cm. Serial dilatation with fragmented dilators performed followed by passage of the of the dye hysteroscope system. Small fibroid was seen submucosally. Using the polyp removing instrument this was removed in piecemeal. Uterus was then scraped over the entire 360? is no other abnormalities were seen. Instruments withdrawn patient went recovery in satisfactory condition. All sponge, needle, instrument counts were correct. The patient went recovery in satisfactory condition Estimated Blood Loss 5 Drains No Packing No Pathology Yes Complications No immediate complications Condition Stable Disposition PACU
[2023-09-29] MEDS: fentaNYL CITRATE INJ (*CRX) 100 MCG/2 ML VIAL 25 MCG IV PUSH (11:57)
== END 2023-09-29 13:04 | disposition home or self-care (01) ==
PROVIDERS: PCP Family Medicine; Visit Provider Obstetrics & Gynecology
PROC: 0UDB8ZZ Extraction of Endometrium, Via Natural or Artificial Opening Endoscopic (ICD-10-PCS; CPT 58558; principal; 2023-09-29 10:30)
DX: N80.352 Endometriosis of the left pelvic sidewall, unspecified depth (principal); D25.0 Submucous leiomyoma of uterus; R10.2 Pelvic and perineal pain; N94.6 Dysmenorrhea, unspecified; N92.6 Irregular menstruation, unspecified; F31.9 Bipolar disorder, unspecified; F41.9 Anxiety disorder, unspecified; K21.9 Gastro-esophageal reflux disease without esophagitis; F17.210 Nicotine dependence, cigarettes, uncomplicated; E66.9 Obesity, unspecified; Z68.30 Body mass index [BMI] 30.0-30.9, adult
CPT/HCPCS: 58662; 58558; 36415; 85014; 85018; 86850; 86900; 86901; 88305; A9270; J0330; J1100; J1885; J2250; J2371; J2405; J2704; J3010; J7120